=== PATIENT | male | born 1975 | race Caucasian/White ===

== ENCOUNTER 2019-01-19 14:24 | Inpatient (IN) | payer MEDICARE, OTHER, MEDICAID | END 2019-01-23 16:45 | disposition home or self-care (01) | LOC: ER 14:24 → SUR 3N 01-22 10:27 | DX: L03.116 Cellulitis of left lower limb (principal); F17.210 Nicotine dependence, cigarettes, uncomplicated; F12.10 Cannabis abuse, uncomplicated; G40.909 Epilepsy, unspecified, not intractable, without status epilepticus; L02.416 Cutaneous abscess of left lower limb ==

== ENCOUNTER 2019-02-02 01:46 | Emergency (ER) | payer MEDICAID, MEDICARE, OTHER ==
[~2019-02-02] VITALS: Ht 185.4 cm; Wt 68.2 kg
[~2019-02-02 01:46] MED LIST: CLIN-5 PO; HYDR-3972 PO; KEP500T PO; LEVE500T PO; NICO1PAT36 TOP
[2019-02-02 01:59] VITALS: BP 100/71
[2019-02-02] MEDS ORDERED: levetiracetam 250mg tablet PO ONE (02:00)
[2019-02-03] MEDS ORDERED: CLIN150C8 PO (07:07)
[2019-02-03] MEDS ORDERED: NICO-687 TOP (07:08)
== END 2019-02-02 03:34 | disposition home or self-care (01) ==
LOC: ER 01:47
DX: R56.9 Unspecified convulsions (principal); R32 Unspecified urinary incontinence; F12.90 Cannabis use, unspecified, uncomplicated; F15.90 Other stimulant use, unspecified, uncomplicated; F11.90 Opioid use, unspecified, uncomplicated; Z91.14 Patient's other noncompliance with medication regimen; Z60.2 Problems related to living alone; Z59.0 Homelessness; Z56.0 Unemployment, unspecified; Z88.1 Allergy status to other antibiotic agents; Z79.899 Other long term (current) drug therapy
CPT/HCPCS: 99283

== ENCOUNTER 2019-02-02 21:08 | Emergency (ER) | payer MEDICAID ==
[~2019-02-02] VITALS: Ht 185.4 cm; Wt 70.0 kg
[2019-02-02] MEDS ORDERED: LORazepam 1 MG tablet PO ONE (21:50)
[2019-02-02 22:52] LABS: CLARITY,URINE CLEAR (Clear); COLOR,URINE YELLOW (Yellow); GLUCOSE, URINE NEGATIVE (Neg); KETONES,URINE NEGATIVE (Neg); LEUKOCYTE ESTERASE ,URINE NEGATIVE (Neg); NITRITES, URINE NEGATIVE (Neg); OCCULT BLOOD,URINE NEGATIVE (Neg); PH,URINE 6.5 (4.8-8.0); PROTEIN,URINE NEGATIVE (Neg); UROBILINOGEN,URINE 0.2 E.U/dL (0.2-1.0)
[2019-02-02 22:52] LABS: BASOPHILS # (AUTO) 0.1 X10'3 (0-0.2); BASOPHILS % (AUTO) 1.4 % (0-1); EOSINOPHILS # (AUTO) 0.1 X10'3 (0-0.9); HEMOGLOBIN 13.9 g/dl (14.0-17.9); LYMPHOCYTES # (AUTO) 2.5 X10'3 (1.1-4.8); LYMPHOCYTES % (AUTO) 27.5 % (21-51); MEAN CORPUSCULAR HEMOGLOBIN 31.2 PG (27.0-31.0); MEAN CORPUSCULAR HGB CONC 33.8 g/dL (33.0-36.5); MEAN CORPUSCULAR VOLUME 92.2 FL (78-98); MEAN PLATELET VOLUME 8.1 FL (7.4-10.4); MONOCYTES # (AUTO) 0.7 X10'3 (0-0.9); MONOCYTES % (AUTO) 7.9 % (2-12); NEUTROPHILS # (AUTO) 5.6 X10'3 (1.8-7.7); NEUTROPHILS % (AUTO) 62.2 % (42-75); PLATELET COUNT 306 X10'3 (140-440); RED BLOOD COUNT 4.45 X10'6 (4.70-6.10); RED CELL DISTRIBUTION WIDTH 13.5 % (11.5-14.5)
[2019-02-02 23:00] LABS: UA COLLECTION TYPE CLN CATCH MIDSTREAM; URINE AMPHETAMINE SCREEN POSITIVE (Neg); URINE BARBITUATE SCREEN NEGATIVE (Neg); URINE BENZODIAZEPINES SCREEN NEGATIVE (Neg); URINE CANNABINOID SCREEN POSITIVE (Neg); URINE COCAINE SCREEN NEGATIVE (Neg); URINE METHADONE SCREEN NEGATIVE (Neg); URINE OPIATE SCREEN NEGATIVE (Neg); URINE PHENCYCLIDINE SCREEN NEGATIVE (Neg)
[2019-02-02 23:06] LABS: ALANINE AMINOTRANSFERASE 26 U/L (12-78); ALBUMIN 3.5 G/DL (3.4-5.0); ALBUMIN/GLOBULIN RATIO 0.9 (1.1-1.5); ALKALINE PHOSPHATASE 64 IU/L (46-116); ANION GAP 6 (8-16); ASPARTATE AMINO TRANSFERASE 18 U/L (10-37); BILIRUBIN,TOTAL 0.3 MG/DL (0.1-1.0); BLOOD UREA NITROGEN 6 MG/DL (7-18); BUN/CREATININE RATIO 5.8 (5.4-32.0); CALCIUM 8.7 MG/DL (8.5-10.1); CHLORIDE 104 MMOL/L (99-107); CREATININE 1.03 MG/DL (0.60-1.10); GLUCOSE 81 MG/DL (70-104); POTASSIUM 3.2 MMOL/L (3.5-5.1); SODIUM 136 MMOL/L (135-145); TOTAL PROTEIN 7.2 G/DL (6.4-8.2); eGFR 79 ML/MIN
[2019-02-02 23:16] LABS: ETHANOL < 0.010 GM/DL (0.0-0.010)
--- NOTE | 2019-02-02 23:46 | NUR ---
Packet faxed to [facility]. Unable to confirm receipt of packet as [id number] hours.
--- NOTE | 2019-02-03 01:21 | NUR ---
patient has been sleeping intermittantly. he has been cooperative since ativan administration
--- NOTE | 2019-02-03 02:07 | NUR ---
PATIENT IS CURRENTLY SLEEPING.
--- NOTE | 2019-02-03 03:39 | NUR ---
Patient is sleeping undisturbed.
[2019-02-03] MEDS ORDERED: CLIN150C8 PO (07:07)
[2019-02-03] MEDS ORDERED: NICO-687 TOP (07:08)
--- NOTE | 2019-02-03 07:23 | NUR ---
RN printed out med rec for Dr. Clark to sign. Pt. requesting his Clindamycin for left knee infection.
[2019-02-03] MEDS: nicotine 21mg patch - 24 hr TD SCH (08:13)
[2019-02-03] MEDS: levetiracetam 250mg tablet PO SCH ×2 (08:13→21:32)
[2019-02-03] MEDS: clindamycin 150mg capsule PO SCH ×4 (08:13→21:32)
--- NOTE | 2019-02-03 09:12 | NUR ---
Pt. woke up for breakfast and am meds. Thankful that he has his meds ordered.
--- NOTE | 2019-02-03 09:53 | NUR ---
Pt. lying in bed supine with covers over head.
--- NOTE | 2019-02-03 12:08 | NUR ---
Pt. lying supine in bed with even respirations and eyes closed.
--- NOTE | 2019-02-03 13:27 | NUR ---
Pt. agitated all of a sudden. Stating he "wants to see a doctor about getting out of here!" Adriel Loyola PA here and will talk with pt. ela.
--- NOTE | 2019-02-03 14:11 | NUR ---
Adriel ZAVALA talking to pt.
[2019-02-03] MEDS: quetiapine 100mg tablet PO SCH ×2 (17:44→21:33)
--- NOTE | 2019-02-03 18:35 | NUR ---
rcd pt agitated eating dinner.tried to calm him down.
--- NOTE | 2019-02-03 20:01 | NUR ---
pt sleeping in bed,breathing even and unlaboured.
--- NOTE | 2019-02-03 21:18 | NUR ---
Eduard from [facility] at the bedside.
[2019-02-03] MEDS: mirtazapine 15mg tablet PO SCH (21:33)
--- NOTE | 2019-02-03 23:00 | NUR ---
pt asleep in bed,breathing even and unlaboured.
--- NOTE | 2019-02-04 00:52 | NUR ---
asleep in bed comfortably.
--- NOTE | 2019-02-04 02:40 | NUR ---
pt asleep in bed,breathing even and unlabored.
--- NOTE | 2019-02-04 04:35 | NUR ---
pt asleep in bed,breathing even and unlaboured.
--- NOTE | 2019-02-04 06:55 | NUR ---
Pt sleeping on back, no distress.
[2019-02-04] MEDS: levetiracetam 250mg tablet PO SCH ×2 (07:56→20:24)
[2019-02-04] MEDS: nicotine 21mg patch - 24 hr TD SCH (07:56)
[2019-02-04] MEDS: clindamycin 150mg capsule PO SCH ×4 (07:56→20:25)
[2019-02-04] MEDS: quetiapine 100mg tablet PO SCH ×4 (07:56→20:25)
--- NOTE | 2019-02-04 09:00 | NUR ---
Pt woke up to eat breakfast and take AM.
--- NOTE | 2019-02-04 11:21 | NUR ---
Pt back to sleep.
--- NOTE | 2019-02-04 12:15 | NUR ---
pt sleeping quietly
[2019-02-04] MEDS ORDERED: LORazepam 1 MG tablet PO ONE (14:05)
--- NOTE | 2019-02-04 14:15 | NUR ---
Pt became agitated. Attempted to calm pt down and redirect, but unsuccessful. Medicated pt with Ativan.
--- NOTE | 2019-02-04 19:00 | NUR ---
Patient requesting something to eat stating "they don't feed you enough in here". Patient also wanting to go for a walk but said that we would not allow him. Instructed patient that he could go for a walk around this floor, but we did not want him trying to leave. Patient ate his snacks and then went back to sleep.
[2019-02-04] MEDS: lactobacillus rhamnosus 10,000 MMU CELLS/CAPSULE PO SCH (20:24)
[2019-02-04] MEDS: mirtazapine 15mg tablet PO SCH (20:25)
--- NOTE | 2019-02-04 21:00 | NUR ---
Patient sleeping on his back with knees bent. In no distress.
--- NOTE | 2019-02-04 23:00 | NUR ---
Patient continues to sleep. He is on his back with knees down. Eyes closed and respirations steady.
--- NOTE | 2019-02-05 01:32 | NUR ---
Patient continues sleeping and has repositioned over to his right side. Breathing even and unlabored.
--- NOTE | 2019-02-05 03:25 | NUR ---
Patient continues sleeping with his mouth open and eyes closed. Respirations are even and unlabored. Bed low/locked.
--- NOTE | 2019-02-05 05:18 | NUR ---
Patient still sleeping peacefully on his back.
[2019-02-05] MEDS: nicotine 21mg patch - 24 hr TD SCH (08:04)
[2019-02-05] MEDS: lactobacillus rhamnosus 10,000 MMU CELLS/CAPSULE PO SCH ×3 (08:04→22:29)
[2019-02-05] MEDS: clindamycin 150mg capsule PO SCH ×5 (08:05→22:29)
[2019-02-05] MEDS: quetiapine 100mg tablet PO SCH ×5 (08:05→22:28)
[2019-02-05] MEDS: levetiracetam 250mg tablet PO SCH ×3 (08:05→22:29)
--- NOTE | 2019-02-05 08:22 | NUR ---
[facility] CALLED, NURSE TO NURSE GIVEN
--- NOTE | 2019-02-05 13:24 | NUR ---
PT THROWING FOOD AND DRINKS OFF HIS MEAL TRAY. PT REFUSED MEDS
--- NOTE | 2019-02-05 19:07 | NUR ---
pt semi-cooperative with assessment. I started off by introducing myself and notifying pt it was time for his PM meds. He states, "I don't take my meds" - pt asked why and he states "because no one cares" - advised him that he couldn't make judgement as to whether or not I cared since we had just met and encouraged him to take his medications so that he would feel better. pt still declines meds. pt reports "I'm hungry because the [place]eron increases my appetite and I asked for another meal but no one gave me one" advised pt that I would bring him an extral meal and delivered a sandwich, jello and juice to the bedside after my evaluation. pt has verbal outbursts while I am questioning him i.e. yells "what the fuck are you looking at?" when he observes other staff looking his way. pt firmly advised that his verbal outbursts will no be tolerated and he needs to respect staff. pt has small scabbed area to left knee and left forearm. He is supposed to be on abx for these but is refusing to take them. no observable redness, drainage or swelling around the area. offered to cover wounds as pt states "they are supposed to be covered" however pt will not allow me to apply a dressing.
[2019-02-05] MEDS: mirtazapine 15mg tablet PO SCH ×2 (20:59→22:28)
--- NOTE | 2019-02-05 21:00 | NUR ---
pt thanked me for the sandwich and has generally been pretty quiet for the past hour and a half. He will make verbal assaults toward other staff members if they make eye contact with him or walk past his bed or when he walks past a sitter to use the restroom.
--- NOTE | 2019-02-05 22:32 | NUR ---
pt had been sleeping for approx past hour. pt awoke and is now requesting his NOC meds that he previously refused. non-admin, undone and meds administered without incident. pts water refilled
--- NOTE | 2019-02-06 00:56 | NUR ---
pt resting. no distress noted. will continue to monitor.
--- NOTE | 2019-02-06 03:54 | NUR ---
pt resting. no needs at this time. will continue to monitor.
--- NOTE | 2019-02-06 05:36 | NUR ---
morning vitals taken. pt has slept throught the evening without incident.
[2019-02-06 05:47] VITALS: BP 100/52
--- NOTE | 2019-02-06 06:40 | NUR ---
Patient sleeping supine, no distress observed. Continue to monitor.
[2019-02-06] MEDS: quetiapine 100mg tablet PO SCH (08:14)
[2019-02-06] MEDS: lactobacillus rhamnosus 10,000 MMU CELLS/CAPSULE PO SCH (08:14)
[2019-02-06] MEDS: clindamycin 150mg capsule PO SCH (08:15)
[2019-02-06] MEDS: nicotine 21mg patch - 24 hr TD SCH (08:15)
[2019-02-06] MEDS: levetiracetam 250mg tablet PO SCH (08:15)
--- NOTE | 2019-02-06 08:25 | NUR ---
Patient eating breakfast. No distress observed. RN gave patient some coffee. Continue to monitor.
--- NOTE | 2019-02-06 11:11 | NUR ---
Patient sleeping supine. No distress observed. Continue to monitor.
== END 2019-02-06 12:50 ==
LOC: ER 21:08
DX: R45.851 Suicidal ideations (principal); R45.850 Homicidal ideations; F15.10 Other stimulant abuse, uncomplicated; F41.9 Anxiety disorder, unspecified; F12.90 Cannabis use, unspecified, uncomplicated; F11.90 Opioid use, unspecified, uncomplicated; Z60.2 Problems related to living alone; Z59.0 Homelessness; Z56.0 Unemployment, unspecified; Z88.8 Allergy status to other drugs, medicaments and biological substances; Z79.899 Other long term (current) drug therapy
CPT/HCPCS: 36415; 80053; 80305; 80320; 81003; 84443; 85025; 99285